=== PATIENT | male | born 1980 | race African-American/Black ===

== ENCOUNTER 2017-09-02 08:10 | Emergency (ER) | payer SELFPAY ==
[2017-09-02 08:12] VITALS: BP 132/67; PULSE 61; RESP 13; TEMP 97.7; O2SAT 99
[2017-09-02] MEDS ORDERED: GRIS1TAB PO ×2 (08:38)
--- NOTE | 2017-09-02 08:41 | PD ---
HPI Chief Complaint: Skin Problem Time Seen by Provider: 08:35 Travel History International Travel<30 days: No Contact w/Intl Traveler<30days: No Traveled to known affect area: No History of Present Illness HPI 36-year-old male presents to emergency Department with complaint of ringworm to his right parietal/occipital scalp 2 weeks. Has history of ringworm to the same spot. Denies fever, vomiting. Denies drainage to the site. Denies itching or pain. Has not taken any medications or tried any treatments to alleviate his symptoms. Symptoms are mild in severity. No known aggravating or relieving factors. No known allergies. Has no medical complaints. Does not have an established primary care provider. No other modifying factors or associated signs and symptoms. PFSH Past Medical History Medical History: Denies Significant Hx Asthma: No Cancer: No Diabetes: No Diminished Hearing: No Immunizations Current: No Myocardial Infarction: No Influenza Vaccination: No Past Surgical History Surgical History: No Previous Surgery Social History Alcohol Use: No Tobacco Use: No (QUIT ) Substance Use: No Allergies-Medications (Allergen,Severity, Reaction): Coded Allergies: No Known Allergies (Unverified , 09/02/17) Reported Meds & Prescriptions Reported Meds & Active Scripts Active Griseofulvin Microsize 500 Mg Tab 500 Mg PO DAILY 30 Days Review of Systems Except as stated in HPI: all other systems reviewed are Neg Physical Exam Narrative GENERAL: Well-nourished, well-developed black male patient, in no acute distress ; afebrile, nontoxic-appearing SKIN: Warm and dry. Right parietal/occipital scalp with a circular patch of flakiness and dryness consistent with tinea capitis; minimal hair loss noted; area is without drainage, erythema, edema. HEAD: Atraumatic. Normocephalic. EYES: Pupils equal and round. No scleral icterus. No injection or drainage. ENT: Mucosa pink and moist. Airway patent. NECK: Trachea midline. CARDIOVASCULAR: Regular rate. RESPIRATORY: No accessory muscle use. GASTROINTESTINAL: Flat. MUSCULOSKELETAL: No obvious deformities. No clubbing. No cyanosis. No edema. NEUROLOGICAL: Awake and alert. Oriented 3. No obvious cranial nerve deficits. Motor grossly within normal limits. Normal speech. PSYCHIATRIC: Appropriate mood and affect; insight and judgment normal. Data Data Last Documented VS Vital Signs Date Time Temp Pulse Resp B/P (MAP) Pulse Ox O2 Delivery O2 Flow Rate FiO2 10/27/17 08:12 97.7 61 13 132/67 (88) 99 Orders Orders Ed Discharge Order (09/02/17 08:41) MDM Medical Decision Making Medical Screen Exam Complete: Yes Emergency Medical Condition: Yes Medical Record Reviewed: Yes Differential Diagnosis Tinea capitis, folliculitis, acute rash Narrative Course 36-year-old male physical exam consistent with tinea capitis. Patient is afebrile and nontoxic-appearing. Denies fever, vomiting. Griseofulvin prescribed for home. 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 Instructed patient to follow up with primary care provider. Patient verbalizes understanding and agreement with treatment plan. Patient is medically cleared and stable for discharge. Discussed reasons to return to the emergency department. Patient agrees with treatment plan. The patients vital signs are stable and the patient is stable for outpatient follow-up and treatment. Patient discharged home, stable and in no acute distress. Diagnosis Primary Impression: Tinea capitis Referrals: [facility] Primary Care Physician Patient Instructions: General Instructions, Tinea Capitis (ED) Additional Instructions: Griseofulvin as prescribed Shampoo your hair regularly Good hand hygiene to prevent spread of infection Do not share personal items such as clothing, towels, hairbrushes, or other personal items Follow-up with dermatology Follow-up with primary care provider Return to the emergency department immediately for worsening of symptoms Med/Other Pt SpecificInfo: Prescription(s) given Scripts Griseofulvin Microsize (Griseofulvin Microsize) 500 Mg Tab 500 MG PO DAILY for Infection for 30 Days, #30 TAB 0 Refills Prov: Garima Leone 09/02/17 Disposition: 01 DISCHARGE HOME Condition: Stable Garima Leone Sep 02, 2017 08:41
== END 2017-09-02 08:57 | disposition home or self-care (01) ==
LOC: NEPK 08:10
DX: B35.0 Tinea barbae and tinea capitis (principal)
CPT/HCPCS: 99283